=== PATIENT | male | born 1955 | race African-American/Black ===

== ENCOUNTER 2020-07-24 03:27 | Emergency (ER) | payer MEDICAID ==
[~2020-07-24] VITALS: Ht 177.8 cm; Wt 70.0 kg
[2020-07-24 03:45] VITALS: BP 120/77
== END 2020-07-24 04:15 | disposition left against medical advice (07) ==
LOC: ER 03:27
DX: M79.604 Pain in right leg (principal); M79.605 Pain in left leg; Z53.21 Procedure and treatment not carried out due to patient leaving prior to being seen by health care provider